=== PATIENT | female | born 1950 | race Caucasian/White ===

== ENCOUNTER 2018-03-01 15:25 | Observation (INO) | payer MEDICARE ==
[2018-03-01] MEDS ORDERED: NORMAL SALINE 1000 ML 1,000 ML IV ONE (16:12)
--- NOTE | 2018-03-01 16:14 | ER Document Report ---
ED Medical Screen (RME) - General Chief Complaint: General Weakness Stated Complaint: BLOOD SUGAR ISSUE/WEAKNESS Time Seen by Provider: 03/01/18 16:12 Notes: 68 years old female from [facility] travel long distance yesterday came home with lower back pain cramps and feeling tired. She also had an episode of TIA. She was sitting in the toilet for a long time did not know what to do about it. And confused. And non-coherent. TRAVEL OUTSIDE OF THE [place] IN LAST 30 DAYS: No - Related Data Allergies/Adverse Reactions: No Known Allergies Allergy (Verified 03/01/18 15:28) Past Medical History - Past Medical History Cardiac Medical History: Reports: Hx Hypertension - Immunizations Hx Diphtheria, Pertussis, Tetanus Vaccination: Yes Physical Exam - Vital signs Vitals: Temp Pulse Resp BP Pulse Ox 98.0 F 73 16 165/60 H 98 03/01/18 15:36 03/01/18 15:36 03/01/18 15:36 03/01/18 15:36 03/01/18 15:36 Course - Vital Signs Vital signs: Temp Pulse Resp BP Pulse Ox 98.0 F 73 16 165/60 H 98 03/01/18 15:36 03/01/18 15:36 03/01/18 15:36 03/01/18 15:36 03/01/18 15:36
[2018-03-01 17:00] LABS: APPEARANCE,URINE CLEAR; BILIRUBIN,URINE NEGATIVE (NEGATIVE); COLOR,URINE AMBER; GLUCOSE, URINE NEGATIVE (NEGATIVE); KETONES,URINE NEGATIVE (NEGATIVE); LEUKOCYTE ESTERASE,URINE NEGATIVE (NEGATIVE); NITRITE,URINE NEGATIVE (NEGATIVE); PROTEIN,URINE NEGATIVE (NEGATIVE); URINE SPECIFIC GRAVITY 1.011
[2018-03-01 17:04] LABS: ABSOLUTE EOSINOPHILS # (AUTO) 0.2 10^3/uL (0.0-0.6); ABSOLUTE LYMPHOCYTES (AUTO) 1.1 10^3/uL (0.5-4.7); ABSOLUTE MONOCYTES (AUTO) 0.3 10^3/uL (0.1-1.4); ABSOLUTE NEUT (AUTO) 2.5 10^3/uL (1.7-8.2); BASOPHILS % (AUTO) 0.2 % (0-2); EOSINOPHILS % (AUTO) 5.1 % (0-6); HEMATOCRIT 44.9 % (36.0-47.0); HEMOGLOBIN 15.4 g/dL (12.0-15.5); LYMPHOCYTES % (AUTO) 26.1 % (13-45); MEAN CORPUSCULAR HEMOGLOBIN 34.7 pg (27.0-33.4); MEAN CORPUSCULAR HGB CONC 34.3 g/dL (32.0-36.0); MEAN CORPUSCULAR VOLUME 101 fl (80-97); MONOCYTES % (AUTO) 8.4 % (3-13); RED BLOOD COUNT 4.43 10^6/uL (3.72-5.28); SEGMENTED NEUTROPHILS % (AUTO) 60.2 % (42-78); TOTAL CELLS COUNTED % (AUTO) 100 %; WHITE BLOOD COUNT 4.2 10^3/uL (4.0-10.5)
[2018-03-01 17:36] LABS: PLATELET COUNT 57 10^3/uL (150-450)
[2018-03-01 17:50] LABS: ALANINE AMINOTRANSFERASE 126 U/L (9-52); ALBUMIN 2.5 g/dL (3.5-5.0); ALKALINE PHOSPHATASE 294 U/L (38-126); ANION GAP 7 (5-19); ASPARTATE AMINO TRANSFERASE 182 U/L (14-36); BILIRUBIN,DIRECT 0.5 mg/dL (0.0-0.4); BLOOD UREA NITROGEN 13 mg/dL (7-20); CALCIUM 8.3 mg/dL (8.4-10.2); CARBON DIOXIDE 25 mmol/L (22-30); CHLORIDE 113 mmol/L (98-107); GLUCOSE 138 mg/dL (75-110); SODIUM 145.3 mmol/L (137-145); TOTAL PROTEIN 6.1 g/dL (6.3-8.2)
--- NOTE | 2018-03-01 17:52 | ER Document Report ---
ED Dizziness/Weakness - General Chief Complaint: General Weakness Stated Complaint: BLOOD SUGAR ISSUE/WEAKNESS Time Seen by Provider: 03/01/18 16:12 Notes: 68-year-old female patient emergency department chief complaint of weakness. Patient states that she is from out of town. Here visiting daughter. Began feeling weak. Thought her blood sugar was low. [place] like she is going to pass out. Having severe leg cramps. Has been dizzy and a little confused today as well. Feeling a little bit better after getting a liter of normal saline from triage. Patient states that she does not have any medical problems. Takes supplements for her medical conditions. States that she may have hepatitis but she has prayed for healing and has not followed up with her regular doctor. Denies any significant headache at this time. No significant bruising. TRAVEL OUTSIDE OF THE [place] IN LAST 30 DAYS: No - HPI Patient complains to provider of: Altered mental status, Near-syncope, Weakness Onset: Just prior to arrival Onset/Duration: Better Quality of pain: No pain - Related Data Allergies/Adverse Reactions: No Known Allergies Allergy (Verified 03/01/18 15:28) Past Medical History - General Information source: Patient - Social History Smoking Status: Never Smoker Frequency of alcohol use: None Drug Abuse: None Lives with: Spouse/Significant other Family History: Reviewed & Not Pertinent Patient has suicidal ideation: No Patient has homicidal ideation: No - Medical History Medical History: Other - Hepatitis C - Past Medical History Cardiac Medical History: Reports: Hx Hypertension Renal/ Medical History: Denies: Hx Peritoneal Dialysis - Immunizations Hx Diphtheria, Pertussis, Tetanus Vaccination: Yes Review of Systems - Review of Systems Constitutional: Malaise, Weakness. denies: Fever EENT: denies: Eye pain, Blurred vision, Double vision, Difficulty swallowing, Throat swelling Cardiovascular: denies: Chest pain, Palpitations, Heart racing Respiratory: denies: Cough, Hurts to breathe, Short of breath, Wheezing Gastrointestinal: denies: Abdominal pain, Diarrhea, Nausea, Vomiting Genitourinary: denies: Burning, Dysuria, Discharge Musculoskeletal: Muscle pain, Muscle stiffness. denies: Back pain, Joint swelling, Leg swelling Skin: denies: Dryness, Lesions, Lumps, Rash Hematologic/Lymphatic: denies: Anemia, Blood clots, Easy bleeding, Easy bruising Neurological/Psychological: Confusion, Sensory change, Weakness, Numbness. denies: Paralysis, Seizure Physical Exam - Vital signs Vitals: Temp Pulse Resp BP Pulse Ox 98.0 F 73 16 165/60 H 98 03/01/18 15:36 03/01/18 15:36 03/01/18 15:36 03/01/18 15:36 03/01/18 15:36 Interpretation: Normal - General General appearance: Appears well, Alert - HEENT Head: Normocephalic, Atraumatic Eyes: Normal Pupils: PERRL - Respiratory Respiratory status: No respiratory distress Chest status: Nontender Breath sounds: Normal Chest palpation: Normal - Cardiovascular Rhythm: Regular Heart sounds: Normal auscultation Murmur: No - Abdominal Inspection: Normal Distension: No distension Bowel sounds: Normal Tenderness: Nontender Organomegaly: No organomegaly - Back Back: Normal, Nontender - Extremities General upper extremity: Normal inspection, Nontender, Normal color, Normal ROM , Normal temperature General lower extremity: Normal inspection, Nontender, Edema - Trace edema bilateral lower extremities, Normal color, Normal ROM, Normal temperature, Normal weight bearing. No: Liza's sign - Neurological Neuro grossly intact: Yes Cognition: Normal Orientation: AAOx4 Lisa Coma Scale Eye Opening: Spontaneous Lisa Coma Scale Verbal: Oriented Lisa Coma Scale Motor: Obeys Commands [place] Coma Scale Total: 15 Speech: Normal Motor strength normal: LUE, RUE, LLE, RLE Sensory: Normal - Psychological Associated symptoms: Normal affect, Normal mood - Skin Skin Temperature: Warm Skin Moisture: Dry Skin Color: Normal Course - Re-evaluation Re-evalutation: 03/01/18 19:55 Patient has profoundly abnormal liver function studies, grossly elevated creatinine kinase. Thrombocytopenia. Head CT and chest x-ray ordered and unremarkable. At this time feel uncomfortable with these multitude of issues. Will consult with hospitalist for admission at this time. - Vital Signs Vital signs: Temp Pulse Resp BP Pulse Ox 98.0 F 73 16 109/75 99 03/01/18 15:36 03/01/18 15:36 03/01/18 15:36 03/01/18 18:46 03/01/18 18:46 - Laboratory Result Diagrams: 03/01/18 16:28 03/01/18 17:15 Laboratory results interpreted by me: 03/01/18 03/01/18 03/01/18 16:28 16:28 16:28 MCV 101 H MCH 34.7 H RDW 15.0 H Plt Count 57 L PT 16.8 H Sodium Chloride Glucose Calcium Direct Bilirubin AST ALT Alkaline Phosphatase Creatine Kinase CK-MB (CK-2) Total Protein Albumin Urine Urobilinogen 2.0 H 03/01/18 03/01/18 17:15 17:15 MCV MCH RDW Plt Count PT Sodium 145.3 H Chloride 113 H Glucose 138 H Calcium 8.3 L Direct Bilirubin 0.5 H AST 182 H ALT 126 H Alkaline Phosphatase 294 H Creatine Kinase 2241 H CK-MB (CK-2) 6.53 H Total Protein 6.1 L Albumin 2.5 L Urine Urobilinogen - EKG Interpretation by Ak EKG shows normal: Sinus rhythm, Kramer, Intervals, QRS Complexes, ST-T Waves Discharge - Discharge Clinical Impression: Hepatitis, Thrombocytopenia Rhabdomyolysis Qualifiers: Rhabdomyolysis type: non-traumatic Qualified Code(s): M62.82 - Rhabdomyolysis Condition: Good Disposition: ADMITTED INPATIENT Admitting Provider: Hospitalist Unit Admitted: Telemetry [facility]
[2018-03-01 18:01] LABS: CREATINE KINASE 2241 U/L (30-135)
[2018-03-01 19:30] LABS: FREE T3 3.6 pg/mL (2.77-5.27); FREE T4 (FREE THYROXINE) 1.19 ng/dL (0.78-2.19)
[2018-03-01 19:43] LABS: THYROID STIMULATING HORMONE 0.94 uIU/mL (0.47-4.68)
[2018-03-01 20:00] LABS: APPEARANCE,URINE CLEAR; BILIRUBIN,URINE NEGATIVE (NEGATIVE); COLOR,URINE STRAW; GLUCOSE, URINE NEGATIVE (NEGATIVE); KETONES,URINE NEGATIVE (NEGATIVE); LEUKOCYTE ESTERASE,URINE NEGATIVE (NEGATIVE); NITRITE,URINE NEGATIVE (NEGATIVE); PROTEIN,URINE NEGATIVE (NEGATIVE); URINE SPECIFIC GRAVITY 1.005; UROBILINOGEN,URINE NEGATIVE mg/dL (<2.0)
[2018-03-01 20:00] LABS: PROTHROMBIN TIME 16.8 SEC (11.4-15.4)
[2018-03-01 20:01] LABS: PARTIAL THROMBOPLASTIN TIME 33.4 SEC (23.5-35.8)
--- NOTE | 2018-03-01 20:18 | RADIOLOGY REPORT (SQ) ---
EXAM DESCRIPTION: CHEST 2 VIEWS COMPLETED DATE/TIME: 03/01/2018 7:29 pm REASON FOR STUDY: altered mental status COMPARISON: 09/01/2017 EXAM PARAMETERS: NUMBER OF VIEWS: two views TECHNIQUE: Digital Frontal and Lateral radiographic views of the chest acquired. RADIATION DOSE: NA LIMITATIONS: none FINDINGS: LUNGS AND PLEURA: No opacities, masses or pneumothorax. No pleural effusion. MEDIASTINUM AND HILAR STRUCTURES: No masses or contour abnormalities. HEART AND VASCULAR STRUCTURES: Heart normal size. No evidence for failure. BONES: No acute findings. HARDWARE: None in the chest. OTHER: No other significant finding. IMPRESSION: NO ACUTE RADIOGRAPHIC FINDING IN THE CHEST. TECHNICAL DOCUMENTATION: JOB ID: [id number] [employer]- All Rights Reserved Reading location - IP/workstation name: [email or web address]
--- NOTE | 2018-03-01 20:19 | RADIOLOGY REPORT (SQ) ---
EXAM DESCRIPTION: CT HEAD WITHOUT COMPLETED DATE/TIME: 03/01/2018 7:31 pm REASON FOR STUDY: Altered mental status, thrombocytopenia COMPARISON: None. TECHNIQUE: Axial images acquired through the brain without intravenous contrast. Images reviewed wi th bone, brain and subdural windows. Additional sagittal and coronal reconstructions were generated. Images stored on PACS. All CT scanners at this facility use dose modulation, iterative reconstruction, and/or weight based d osing when appropriate to reduce radiation dose to as low as reasonably achievable (ALARA). [facility]: Dose Right [facility]: CareDose [facility]: Dose Right [facility]: Teradose 4D [facility]: [employer] RADIATION DOSE: CT Rad equipment meets quality standard of care and radiation dose reduction techniq ues were employed. CTDIvol: 53.2 mGy. DLP: 964 mGy-cm. mGy. LIMITATIONS: None. FINDINGS: VENTRICLES: Normal size and contour. CEREBRUM: No masses. No hemorrhage. No midline shift. No evidence for acute infarction. Normal gra y/white matter differentiation. No areas of low density in the white matter. CEREBELLUM: No masses. No hemorrhage. No alteration of density. No evidence for acute infarction. EXTRAAXIAL SPACES: No fluid collections. No masses. ORBITS AND GLOBE: No intra- or extraconal masses. Normal contour of globe without masses. CALVARIUM: No fracture. PARANASAL SINUSES: No fluid or mucosal thickening. SOFT TISSUES: No mass or hematoma. OTHER: No other significant finding. IMPRESSION: NORMAL BRAIN CT WITHOUT CONTRAST. EVIDENCE OF ACUTE STROKE: NO. COMMENT: Quality ID # [id number]: Final reports with documentation of one or more dose reduction techniques (e.g., Automated exposure control, adjustment of the mA and/or kV according to patient size, use of iterative reconstruction technique) TECHNICAL DOCUMENTATION: JOB ID: [id number] [employer]- All Rights Reserved Reading location - IP/workstation name: [email or web address]
[2018-03-01] MEDS ORDERED: ONDANSETRON HCL INJ/PF 4 MG/2 ML SDV IV PRN (20:36)
[2018-03-01] MEDS ORDERED: IBUPROFEN 400 MG TABLET PO PRN (20:42)
--- NOTE | 2018-03-01 20:58 | PDOC H&P ---
History of Present Illness Admission Date/PCP: 03/01/18 20:28 PCP from out of town. Patient is currently visiting. Patient complains of: Weakness, lethargy, muscle pain History of Present Illness: NASEEM VIRK is a 68 year old female with history of possible hep C presents to the emergency room with complaint of bilateral lower extremity cramps as well as generalized weakness and lethargy and confusion since yesterday. Patient denies any complaint of fever or chills or chest pain or shortness of breath or abdominal pain or nausea vomiting. Patient has not been drinking or eating well as per family. Patient denies any urinary symptoms are focal weakness or numbness. Patient denies headache. On arrival to the emergency room her vitals were stable. CT head was unremarkable. Her laboratory workup shows thrombocytopenia and low albumin. Her LFTs elevated. Her CKs more than 2000. Troponin is negative BNP is normal.. Chest x-ray unremarkable. Urine analysis is negative. Patient was given IV fluid and was referred to hospitalist service for admission. Patient is currently alert awake oriented 3. Past Medical History Cardiac Medical History: Reports: Hypertension EENT Medical History: Reports: None Endocrine Medical History: Reports: None Malignancy Medical History: Reports: None GI Medical History: Reports: Hepatitis - Possible hep C Musculoskeltal Medical History: Reports: None Skin Medical History: Reports: None Psychiatric Medical History: Reports: None Traumatic Medical History: Reports: None Hematology: Reports: None Infectious Medical History: Reports: None Past Surgical History Past Surgical History: Reports: None Social History Information Source: Patient Lives with: Family, Spouse/Significant other Smoking Status: Never Smoker Frequency of Alcohol Use: None Hx Recreational Drug Use: No Family History Family History: Reviewed & Not Pertinent Parental Family History Reviewed: No Children Family History Reviewed: No Sibling(s) Family History Reviewed.: No Medication/Allergy Allergies/Adverse Reactions: No Known Allergies Allergy (Verified 03/01/18 15:28) Review of Systems Constitutional: PRESENT: fatigue, weakness Eyes: PRESENT: as per HPI Ears: PRESENT: as per HPI Nose, Mouth, and Throat: PRESENT: as per HPI Breasts: PRESENT: as per HPI Cardiovascular: PRESENT: as per HPI Respiratory: PRESENT: as per HPI Gastrointestinal: PRESENT: as per HPI Musculoskeletal: PRESENT: muscle weakness Integumentary: PRESENT: as per HPI Neurological: PRESENT: confusion Psychiatric: PRESENT: as per HPI Endocrine: PRESENT: as per HPI Hematologic/Lymphatic: PRESENT: as per HPI Allergic/Immunologic: PRESENT: as per HPI Physical Exam Vital Signs: Temp Pulse Resp BP Pulse Ox 98.0 F 73 16 109/75 99 03/01/18 15:36 03/01/18 15:36 03/01/18 15:36 03/01/18 18:46 03/01/18 18:46 General appearance: PRESENT: no acute distress, cooperative, well-developed, well-nourished Head exam: PRESENT: atraumatic Eye exam: PRESENT: EOMI, PERRLA. ABSENT: nystagmus Ear exam: PRESENT: normal external ear exam. ABSENT: bleeding, drainage Mouth exam: PRESENT: moist, neck supple Throat exam: ABSENT: tonsillar exudate, tonsillogmegaly Neck exam: ABSENT: carotid bruit, JVD, lymphadenopathy, tenderness, thyromegaly Respiratory exam: PRESENT: clear to auscultation constantine. ABSENT: chest wall tenderness, rales, tachypnea, wheezes Cardiovascular exam: PRESENT: RRR, +S1, +S2 Pulses: PRESENT: normal carotid pulses, normal dorsalis pedis pul Vascular exam: PRESENT: normal capillary refill GI/Abdominal exam: PRESENT: normal bowel sounds, soft. ABSENT: organolmegaly, tenderness Rectal exam: PRESENT: deferred Gentrourinary exam: ABSENT: ecchymosis, erythema, lacerations Extremities exam: PRESENT: full ROM. ABSENT: calf tenderness, joint swelling, tenderness Musculoskeletal exam: PRESENT: ambulatory Neurological exam: PRESENT: alert, altered, awake, oriented to person, oriented to time, oriented to situation, CN II-XII grossly intact, motor sensory deficit Psychiatric exam: ABSENT: homicidal ideation, suicidal ideation Skin exam: ABSENT: abrasion, jaundice, rash Results EKG Comments: Normal sinus rhythm with nonspecific ST changes. Personally reviewed by me. Impressions: Chest X-Ray 03/01/18 18:35 IMPRESSION: NO ACUTE RADIOGRAPHIC FINDING IN THE CHEST. Head CT 03/01/18 18:35 IMPRESSION: NORMAL BRAIN CT WITHOUT CONTRAST. EVIDENCE OF ACUTE STROKE: NO. Status: Image reviewed by me Assessment & Plan - Diagnosis (1) Altered mental status, unspecified Qualifiers: Altered mental status type: somnolence Qualified Code(s): R40.0 - Somnolence Is this a current diagnosis for this admission?: Yes Plan: Patient with transient confusion and drowsy. Likely dehydration or secondary to liver disease. Will check ammonia level. CT head is negative. No focal deficit on exam. We will continue frequent neuro check. Patient's mental status is now at baseline. (2) Elevated LFTs Is this a current diagnosis for this admission?: Yes Plan: Patient gives history of possible hep C. Will check hepatitis panel. Check ammonia level. Consider right upper quadrant if needed. Will recheck liver function tests in a.m.. (3) Rhabdomyolysis Qualifiers: Rhabdomyolysis type: non-traumatic Qualified Code(s): M62.82 - Rhabdomyolysis Is this a current diagnosis for this admission?: Yes Plan: Unknown etiology. Could be dehydration. Will continue IV fluid resuscitation. Renal function is normal. Recheck CK in a.m.. - Time Time Spent: 30 to 50 Minutes Medications reviewed and adjusted accordingly: No Within: within 24 hours - Inpatient Certification Based on my medical assessment, after consideration of the patient's comorbidities, presenting symptoms, or acuity I expect that the services needed warrant INPATIENT care.: No I certify that my determination is in accordance with my understanding of Medicare's requirements for reasonable and necessary INPATIENT services [42 CFR 412.3e].: No - Plan Summary Plan Summary: Observation level 2 admission.
[2018-03-01] MEDS: DEXTROSE 5%-NORMAL SALINE 1,000 ML IV PRN (21:22)
--- NOTE | 2018-03-01 21:33 | EKG REPORT ---
SEVERITY:- BORDERLINE ECG - SINUS RHYTHM BORDERLINE LEFT AXIS DEVIATION BORDERLINE PROLONGED QT INTERVAL : Confirmed by: Kayla Isbell 01-Mar-2018 21:33:00
[2018-03-02] MEDS: DEXTROSE 5%-NORMAL SALINE 1,000 ML IV PRN ×2 (05:21→21:15)
[2018-03-02 06:43] LABS: HEMATOCRIT 36.6 % (36.0-47.0); MEAN CORPUSCULAR HEMOGLOBIN 34.7 pg (27.0-33.4); MEAN CORPUSCULAR HGB CONC 34.1 g/dL (32.0-36.0); MEAN CORPUSCULAR VOLUME 102 fl (80-97); RED CELL DISTRIBUTION WIDTH 15.1 % (11.5-14.0); WHITE BLOOD COUNT 3.1 10^3/uL (4.0-10.5)
[2018-03-02 06:54] LABS: ALANINE AMINOTRANSFERASE 114 U/L (9-52); ALBUMIN 2.2 g/dL (3.5-5.0); ALKALINE PHOSPHATASE 204 U/L (38-126); ANION GAP 5 (5-19); ASPARTATE AMINO TRANSFERASE 154 U/L (14-36); BILIRUBIN,DIRECT 0.5 mg/dL (0.0-0.4); BILIRUBIN,TOTAL 1.1 mg/dL (0.2-1.3); BLOOD UREA NITROGEN 11 mg/dL (7-20); CALCIUM 8.2 mg/dL (8.4-10.2); CARBON DIOXIDE 26 mmol/L (22-30); CHLORIDE 118 mmol/L (98-107); CREATINE KINASE 993 U/L (30-135); GLUCOSE 117 mg/dL (75-110); POTASSIUM 3.6 mmol/L (3.6-5.0); SODIUM 148.6 mmol/L (137-145); TOTAL PROTEIN 5.5 g/dL (6.3-8.2)
[2018-03-02 07:32] LABS: HEMOGLOBIN 12.5 g/dL (12.0-15.5)
[2018-03-02 07:35] LABS: PLATELET COUNT 38 10^3/uL (150-450)
--- NOTE | 2018-03-02 14:03 | RADIOLOGY REPORT (SQ) ---
EXAM DESCRIPTION: CT ABD/PELVIS WITH IV ONLY COMPLETED DATE/TIME: 03/02/2018 1:19 pm REASON FOR STUDY: elevated LFT R10.10 UPPER ABDOMINAL PAIN, UNSPECIFIED D69.6 THROMBOCYTOPENIA, UN SPECIFIED COMPARISON: None. TECHNIQUE: CT scan of the abdomen and pelvis performed using helical scanning technique with dynamic intravenous contrast injection. No oral contrast. Images reviewed with lung, soft tissue, and bone windows. Reconstructed coronal and sagittal MPR images reviewed. Delayed images for evaluation of the urinary system also acquired. All images stored on PACS. All CT scanners at this facility use dose modulation, iterative reconstruction, and/or weight based d osing when appropriate to reduce radiation dose to as low as reasonably achievable (ALARA). [facility]: Dose Right [facility]: CareDose [facility]: Dose Right [facility]: Teradose 4D [facility]: [employer] CONTRAST TYPE AND DOSE: contrast/concentration: Isovue 370.00 mg/ml; Total Contrast Delivered: 81.0 ml; Total Saline Delivered: 68.0 ml RENAL FUNCTION: Creatinine 0.59 RADIATION DOSE: CT Rad equipment meets quality standard of care and radiation dose reduction techniq ues were employed. CTDIvol: 9.0 - 10.5 mGy. DLP: 903 mGy-cm.. LIMITATIONS: None. FINDINGS: LOWER CHEST: No significant findings. No nodules or infiltrates. LIVER: Normal size. No masses. No dilated ducts. SPLEEN: The spleen is enlarged. No focal splenic abnormalities are identified. PANCREAS: No masses. No significant calcifications. No adjacent inflammation or peripancreatic fluid collections. Pancreatic duct not dilated. GALLBLADDER: Couple small calcified gallstones are identified. No inflammatory changes to suggest cho lecystitis. ADRENAL GLANDS: No significant masses or asymmetry. RIGHT KIDNEY AND URETER: No solid masses. No significant calcifications. No hydronephrosis or hyd roureter. LEFT KIDNEY AND URETER: No solid masses. No significant calcifications. No hydronephrosis or hydr oureter. AORTA AND VESSELS: No aneurysm. No dissection. Vascular calcifications are identified in the abdomin al aorta and iliac vessels. Renal arteries, SMA, celiac without stenosis. RETROPERITONEUM: No retroperitoneal adenopathy, hemorrhage or masses. BOWEL AND PERITONEAL CAVITY: No masses or inflammatory changes. No free fluid or peritoneal masses. APPENDIX: Normal. PELVIS: No mass. No free fluid. Normal bladder. ABDOMINAL WALL: No masses. No hernias. BONES: No significant or acute findings. OTHER: Multiple collateral venous structures are identified in the left upper quadrant consistent wit h portal hypertension. IMPRESSION: The spleen is enlarged. Multiple collateral venous channels are identified in the left upper quadrant in the appearance is most consistent with portal hypertension. Couple small gallstone s are identified. No dilated intrahepatic bile ducts are identified. Other findings as noted above TECHNICAL DOCUMENTATION: JOB ID: [id number] Quality ID # [id number]: Final reports with documentation of one or more dose reduction techniques (e.g., Au tomated exposure control, adjustment of the mA and/or kV according to patient size, use of iterative reconstruction technique) 2010 [employer]- All Rights Reserved Reading location - IP/workstation name: [email or web address]
--- NOTE | 2018-03-02 17:56 | PDOC PROGRESS REPORT ---
Subjective Progress Note for:: 03/02/18 Subjective:: The patient is a 68-year-old female who [place] [facility]. She presented to the emergency room with altered mental status. In the emergency room she was found to have markedly elevated liver function tests and thrombocytopenia. Her states that she has a history of hepatitis C but the patient adamantly denied. The patient does not like to take medications. 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 The patient was admitted to the hospital and hydrated. This morning her acute encephalopathy has totally resolved and she is back to her baseline mentation. Her thrombocytopenia is worse. She had a CT scan of the abdomen and pelvis which reveals evidence of probable portal hypertension, diffuse fatty liver and splenomegaly. When I went to see the patient today she states that she is quite anxious to leave the hospital. She states that she is going to establish care with a primary care physician when she gets up, which will be in 2 weeks. After a long discussion we have agreed to do no further workup here in the hospital. We are going to watch her overnight and if her labs are stable tomorrow she will be discharged home. I am going to try to get her a new patient appointment as an outpatient in her home town. She denies fever chills. She has had no chest pain, shortness of breath or cough. No nausea vomiting or diarrhea. No urinary complaints. Reason For Visit: AMS,ELEVATED CK Physical Exam Vital Signs: Temp Pulse Resp BP Pulse Ox 98.4 F 66 18 142/62 H 98 03/02/18 15:37 03/02/18 15:37 03/02/18 15:37 03/02/18 15:37 03/02/18 15:37 Intake & Output 03/01/18 03/02/18 03/03/18 06:59 06:59 06:59 Intake Total 1248 1857 Balance 1248 1857 Weight 75.6 kg General appearance: PRESENT: no acute distress, well-developed, other - Somewhat ill-appearing Head exam: PRESENT: atraumatic, normocephalic Eye exam: PRESENT: conjunctiva pink, EOMI, PERRLA. ABSENT: scleral icterus Mouth exam: PRESENT: moist, tongue midline Neck exam: ABSENT: carotid bruit, JVD, lymphadenopathy, thyromegaly Respiratory exam: PRESENT: clear to auscultation constantine. ABSENT: rales, rhonchi, wheezes Cardiovascular exam: PRESENT: RRR. ABSENT: diastolic murmur, rubs, systolic murmur GI/Abdominal exam: PRESENT: normal bowel sounds, soft. ABSENT: distended, guarding, mass, organolmegaly, rebound, tenderness Rectal exam: PRESENT: deferred Extremities exam: PRESENT: full ROM. ABSENT: calf tenderness, clubbing, pedal edema Neurological exam: PRESENT: alert, awake, oriented to person, oriented to place , oriented to time, oriented to situation, CN II-XII grossly intact. ABSENT: motor sensory deficit Psychiatric exam: PRESENT: appropriate affect, normal mood. ABSENT: homicidal ideation, suicidal ideation Skin exam: PRESENT: dry, intact, warm. ABSENT: cyanosis, rash Results Laboratory Results: 03/02/18 05:45 03/02/18 05:45 03/02/18 03/02/18 03/02/18 05:45 05:45 05:45 WBC 3.1 L RBC 3.60 L Hgb 12.5 D Hct 36.6 MCV 102 H MCH 34.7 H MCHC 34.1 RDW 15.1 H Plt Count 38 L Sodium 148.6 H Potassium 3.6 Chloride 118 H Carbon Dioxide 26 Anion Gap 5 BUN 11 Creatinine 0.59 Est GFR ( Amer) > 60 Est GFR (Non-Af Amer) > 60 Glucose 117 H Calcium 8.2 L Phosphorus 3.2 Total Bilirubin 1.1 AST 154 H ALT 114 H Alkaline Phosphatase 204 H Total Protein 5.5 L Albumin 2.2 L 03/02/18 05:45 Creatine Kinase 993 H Impressions: Chest X-Ray 03/01/18 18:35 IMPRESSION: NO ACUTE RADIOGRAPHIC FINDING IN THE CHEST. Head CT 03/01/18 18:35 IMPRESSION: NORMAL BRAIN CT WITHOUT CONTRAST. EVIDENCE OF ACUTE STROKE: NO. Abdomen/Pelvis CT 03/02/18 08:55 IMPRESSION: The spleen is enlarged. Multiple collateral venous channels are identified in the left upper quadrant in the appearance is most consistent with portal hypertension. Couple small gallstones are identified. No dilated intrahepatic bile ducts are identified. Other findings as noted above Assessment & Plan - Diagnosis (1) Acute encephalopathy Is this a current diagnosis for this admission?: Yes Plan: The patient had acute metabolic encephalopathy at the time of admission that was likely due to underlying dehydration. Her encephalopathy is totally resolved and she is back to her baseline. Her ammonia level was normal. (2) Elevated liver function tests Is this a current diagnosis for this admission?: Yes Plan: She reportedly has a history of hepatitis C that was untreated. Adamantly denies this. Hepatitis panel is pending. She does have evidence of portal hypertension and diffuse fatty infiltration of the liver noted on CT scan. She needs a good GI doctor and further workup. She has worsening thrombocytopenia which could be due to her underlying liver disease, however she does have splenomegaly and there could be another process going on as well. (3) Thrombocytopenia Is this a current diagnosis for this admission?: Yes Plan: Her platelet level is down to 35,000. We are going to check a CBC in the morning. This certainly needs further workup in light of her splenomegaly and signs of liver disease. If her platelet level is stable tomorrow she can likely be discharged home. We are going to obtain a new patient appointment at discharge. (4) Splenomegaly Is this a current diagnosis for this admission?: Yes (5) Rhabdomyolysis Is this a current diagnosis for this admission?: Yes Plan: Resolving with IV fluids. (6) Hypernatremia Is this a current diagnosis for this admission?: Yes Plan: She will have a level checked in the morning. (7) Hyperglycemia Is this a current diagnosis for this admission?: Yes Plan: She will have hemoglobin A1c drawn in the morning. (8) Full code status Is this a current diagnosis for this admission?: Yes - Time Time Spent with patient: 35 or more minutes - Inpatient Certification Medical Necessity: Other - The patient will remain in observation in the hospital overnight. We are going to repeat labs tomorrow morning. If they are stable she can be discharged and follow-up as an outpatient. The patient does not want to be worked up here in the hospital as she does not live in the area and will be traveling home in the next 2 weeks.
[2018-03-02 19:37] LABS: ANION GAP 6 (5-19); BLOOD UREA NITROGEN 12 mg/dL (7-20); CALCIUM 8.8 mg/dL (8.4-10.2); CARBON DIOXIDE 28 mmol/L (22-30); CHLORIDE 110 mmol/L (98-107); GLUCOSE 133 mg/dL (75-110); POTASSIUM 4.2 mmol/L (3.6-5.0)
[2018-03-02] MEDS ORDERED: CEFTRIAXONE SODIUM 1,000 MG in DEXTROSE 5%-WATER 50 ML IV SCH (20:00)
[2018-03-03 05:41] LABS: HEPATITIS A AB IGM Negative (Negative); HEPATITIS B CORE AB IGM Negative (Negative); HEPATITS B SURFACE ANTIGEN Negative (Negative)
[2018-03-03] MEDS: DEXTROSE 5%-NORMAL SALINE 1,000 ML IV PRN (05:45)
[2018-03-03 06:47] LABS: BLOOD UREA NITROGEN 15 mg/dL (7-20); GLUCOSE 107 mg/dL (75-110); POTASSIUM 3.8 mmol/L (3.6-5.0)
[2018-03-03 06:48] LABS: ABSOLUTE EOSINOPHILS # (AUTO) 0.3 10^3/uL (0.0-0.6); ABSOLUTE LYMPHOCYTES (AUTO) 1.3 10^3/uL (0.5-4.7); ABSOLUTE MONOCYTES (AUTO) 0.3 10^3/uL (0.1-1.4); ABSOLUTE NEUT (AUTO) 1.3 10^3/uL (1.7-8.2); BASOPHILS % (AUTO) 0.5 % (0-2); EOSINOPHILS % (AUTO) 8.1 % (0-6); HEMATOCRIT 34.8 % (36.0-47.0); HEMOGLOBIN 11.9 g/dL (12.0-15.5); LYMPHOCYTES % (AUTO) 42.1 % (13-45); MEAN CORPUSCULAR HEMOGLOBIN 35.1 pg (27.0-33.4); MEAN CORPUSCULAR HGB CONC 34.3 g/dL (32.0-36.0); MEAN CORPUSCULAR VOLUME 102 fl (80-97); MONOCYTES % (AUTO) 8.8 % (3-13); SEGMENTED NEUTROPHILS % (AUTO) 40.5 % (42-78); TOTAL CELLS COUNTED % (AUTO) 100 %; WHITE BLOOD COUNT 3.2 10^3/uL (4.0-10.5)
[2018-03-03 06:52] LABS: ANION GAP 5 (5-19); CARBON DIOXIDE 26 mmol/L (22-30); CHLORIDE 114 mmol/L (98-107); SODIUM 144.5 mmol/L (137-145)
[2018-03-03 07:52] LABS: PLATELET COUNT 37 10^3/uL (150-450)
[2018-03-03 08:20] LABS: HEPATITIS C VIRUS ANTIBODY >11.0 s/co ratio (0.0-0.9)
[2018-03-03 09:01] LABS: ALANINE AMINOTRANSFERASE 105 U/L (9-52); ALBUMIN 1.9 g/dL (3.5-5.0); ALKALINE PHOSPHATASE 138 U/L (38-126); ASPARTATE AMINO TRANSFERASE 136 U/L (14-36); BILIRUBIN,DIRECT 0.5 mg/dL (0.0-0.4); BILIRUBIN,TOTAL 1.2 mg/dL (0.2-1.3); TOTAL PROTEIN 5.1 g/dL (6.3-8.2)
--- NOTE | 2018-03-03 11:54 | PDOC DISCHARGE SUMMARY ---
General - Admit/Disc Date/PCP Admission Date/Primary Care Provider: 03/01/18 20:28 mechanical supervisor: None I have made arrangements for the patient to reestablish care at [facility]. She has followed with Jaclyn in the past and I have made her a new patient appointment Leslie on March 16 at 11 AM. Discharge Date: 03/03/18 - Discharge Diagnosis (1) Acute encephalopathy Is this a current diagnosis for this admission?: Yes Summary: The patient had acute metabolic encephalopathy at the time of admission that was likely due to underlying dehydration. Her encephalopathy has totally resolved and she is back to her baseline. Her ammonia level was normal. (2) Elevated liver function tests Is this a current diagnosis for this admission?: Yes Summary: She reportedly has a history of hepatitis C that was untreated. At the time of admission the patient adamantly denied this. She is very vague about this diagnosis and discussions going forward. A hepatitis panel is pending. She does have evidence of portal hypertension and diffuse fatty infiltration of the liver noted on CT scan. She needs a good GI doctor and further workup. That can be performed as an outpatient she has rather significant thrombocytopenia which could be due to her underlying liver disease, however she does have splenomegaly and there could be another process going on as well. The patient does not want any workup performed during this hospitalization as she wants to get back home and reestablish care with her previous provider. (3) Thrombocytopenia Is this a current diagnosis for this admission?: Yes Summary: On the day of discharge the patient's platelet level is 38,000. Again noted is her abnormal liver function test and splenomegaly on her CT scan. She has evidence of portal hypertension as well. Further workup can be obtained as an outpatient. We kept her in the hospital an additional day to document stability of her platelet level. She has been advised that she could easily bleed and to report back to the hospital if she develops any GI bleeding. (4) Splenomegaly Is this a current diagnosis for this admission?: Yes Summary: Further workup will be obtained as an outpatient. (5) Rhabdomyolysis Is this a current diagnosis for this admission?: Yes Summary: She had very mild rhabdomyolysis at the time of admission. This has resolved with IV fluids. (6) Hypernatremia Is this a current diagnosis for this admission?: Yes Summary: Likely due to dehydration. Resolved (7) Hyperglycemia Is this a current diagnosis for this admission?: Yes Summary: Likely reactive. Her hemoglobin A1c was 4.9. (8) Full code status Is this a current diagnosis for this admission?: Yes - Additional Information Resuscitation Status: Full Code Home Medications: Calcium Carbonate [Os-Venu 500 mg Tablet (Oyster-Shell)] 500 mg PO DAILY Multivitamin [Tab-A-Mitesh (Multiple Vitamin) Tablet] 1 tab PO DAILY 03/01/18 Zinc Gluconate [Zinc] 50 mg PO DAILY 03/01/18 History of Present Illness History of Present Illness: NASEEM VIRK is a 68 year old female who presented to the emergency room with altered mental status. Hospital Course Hospital Course: The patient is a pleasant 68-year-old female who is traveling to this area from the [place] [facility]. She presented to the emergency room with altered mental status. Laboratory studies revealed markedly elevated liver function test as well as thrombocytopenia. She was somewhat confused at the time of admission. Her states that she has a history of hepatitis C that is never been treated but the patient adamantly denied this. According to the patient's she does not like to take medications and quit seeing her primary care provider several years ago. 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 At the time of admission it was felt that she was dehydrated. She was admitted to the hospital and started on IV fluids. She was empirically started on IV Rocephin for a potential urinary tract infection. This was later stopped as urinary tract infection was ruled out. The day after admission her encephalopathy was totally resolved however her platelet levels had worsened. She had a CT scan of the abdomen and pelvis which revealed diffuse fatty infiltration of the liver, evidence of portal hypertension as well as splenomegaly. After a long discussion with the patient's family she was kept in the hospital 1 additional night to document stability of her labs. The patient and her have requested no workup for her issues during this hospitalization as they are just visiting this area. They would like to get her back home and reestablish care with her previous provider. They want to undergo workup in their home town. This morning when I saw the patient she has had no overnight events. She continues to be at her baseline mental status. It is felt that she can safely be discharged home. I personally called [facility] and have made her an appointment to follow-up with her previous provider Jaclyn Nelsno PA-C. I am going to have the nursing staff fax what records we have. There is still a hepatitis panel that is pending as of the time of this dictation and I do not believe it will be back before she leaves the hospital. She has been advised to watch for signs of bleeding. Specifically if she develops any hematemesis or bloody or black stools she is to seek medical help quite quickly. I have explained this to the patient's and her family and all of their questions have been answered. At this point the patient appears to be stable. She has likely had these lab abnormalities for quite some time. She will be discharged home today in stable condition. Physical Exam Vital Signs: Temp Pulse Resp BP Pulse Ox 98.2 F 71 14 142/59 H 97 03/02/18 23:32 03/02/18 23:32 03/02/18 23:32 03/02/18 23:32 03/02/18 23:32 Intake & Output 03/02/18 03/03/18 03/04/18 06:59 06:59 06:59 Intake Total 1248 3345 Balance 1248 3345 Weight 75.6 kg 77.3 kg General appearance: PRESENT: no acute distress, well-developed, well-nourished Head exam: PRESENT: atraumatic, normocephalic Ear exam: PRESENT: normal external ear exam Neck exam: ABSENT: carotid bruit, JVD, lymphadenopathy, thyromegaly Respiratory exam: PRESENT: clear to auscultation constantine. ABSENT: rales, rhonchi, wheezes Cardiovascular exam: PRESENT: RRR. ABSENT: diastolic murmur, rubs, systolic murmur Pulses: PRESENT: normal dorsalis pedis pul GI/Abdominal exam: PRESENT: normal bowel sounds, soft. ABSENT: distended, guarding, mass, organolmegaly, rebound, tenderness Rectal exam: PRESENT: deferred Extremities exam: PRESENT: full ROM. ABSENT: calf tenderness, clubbing, pedal edema Neurological exam: PRESENT: alert, awake, oriented to person, oriented to place , oriented to time, oriented to situation, CN II-XII grossly intact. ABSENT: motor sensory deficit Psychiatric exam: PRESENT: appropriate affect, normal mood. ABSENT: homicidal ideation, suicidal ideation Skin exam: PRESENT: dry, intact, warm. ABSENT: cyanosis, rash Results Laboratory Results: 03/03/18 05:29 03/03/18 05:29 03/02/18 03/03/18 03/03/18 19:00 05:29 05:29 WBC 3.2 L RBC 3.40 L Hgb 11.9 L Hct 34.8 L MCV 102 H MCH 35.1 H MCHC 34.3 RDW 15.0 H Plt Count 37 L Seg Neutrophils % 40.5 L Lymphocytes % 42.1 Monocytes % 8.8 Eosinophils % 8.1 H Basophils % 0.5 Absolute Neutrophils 1.3 L Absolute Lymphocytes 1.3 Absolute Monocytes 0.3 Absolute Eosinophils 0.3 Absolute Basophils 0.0 Sodium 144.0 144.5 Potassium 4.2 3.8 Chloride 110 H 114 H Carbon Dioxide 28 26 Anion Gap 6 5 BUN 12 15 Creatinine 0.93 0.65 Est GFR ( Amer) > 60 > 60 Est GFR (Non-Af Amer) > 60 > 60 Glucose 133 H 107 Calcium 8.8 8.0 L Magnesium 1.9 Total Bilirubin AST ALT Alkaline Phosphatase Total Protein Albumin Vitamin B12 998.0 H Folate 14.70 03/03/18 05:29 WBC RBC Hgb Hct MCV MCH MCHC RDW Plt Count Seg Neutrophils % Lymphocytes % Monocytes % Eosinophils % Basophils % Absolute Neutrophils Absolute Lymphocytes Absolute Monocytes Absolute Eosinophils Absolute Basophils Sodium Potassium Chloride Carbon Dioxide Anion Gap BUN Creatinine Est GFR ( Amer) Est GFR (Non-Af Amer) Glucose Calcium Magnesium Total Bilirubin 1.2 AST 136 H ALT 105 H Alkaline Phosphatase 138 H Total Protein 5.1 L Albumin 1.9 L Vitamin B12 Folate 03/02/18 05:45 Creatine Kinase 993 H Impressions: Chest X-Ray 03/01/18 18:35 IMPRESSION: NO ACUTE RADIOGRAPHIC FINDING IN THE CHEST. Head CT 03/01/18 18:35 IMPRESSION: NORMAL BRAIN CT WITHOUT CONTRAST. EVIDENCE OF ACUTE STROKE: NO. Abdomen/Pelvis CT 03/02/18 08:55 IMPRESSION: The spleen is enlarged. Multiple collateral venous channels are identified in the left upper quadrant in the appearance is most consistent with portal hypertension. Couple small gallstones are identified. No dilated intrahepatic bile ducts are identified. Other findings as noted above Qualifiers - * PATIENT BEING DISCHARGED WITH ANY OF THE FOLLOWING DIAGNOSIS: No Plan Discharge Plan: She has a new patient appointment with her previous provider on March 16 at 11 AM. I am asking the nursing staff here to fax records. Time Spent: Greater than 30 Minutes
[2018-03-03 12:29] VITALS: BP 151/63
== END 2018-03-03 13:05 | disposition home or self-care (01) ==
LOC: ER 15:25 → EH 20:28 → INTOOBSV 20:28 → 4N 22:48
PROVIDERS: ADMIT Internal Medicine; ATTEND Internal Medicine
DX: G93.41 Metabolic encephalopathy (principal); R79.89 Other specified abnormal findings of blood chemistry; K76.6 Portal hypertension; K76.0 Fatty (change of) liver, not elsewhere classified; D69.6 Thrombocytopenia, unspecified; R16.1 Splenomegaly, not elsewhere classified; M62.82 Rhabdomyolysis; E87.0 Hyperosmolality and hypernatremia; R73.9 Hyperglycemia, unspecified; M54.5 Low back pain; Z86.19 Personal history of other infectious and parasitic diseases
CPT/HCPCS: 93005; 99285; 96360; 36415 ×3; 87086; 84439; 82553; 82962; 82140; 82607; 82550 ×2; 82746; 83690; 83735; 84100; 84443; 85025 ×2; 85027; 85610; 85730; 80076; 80048 ×2; 80053 ×2; 81001; 84484; 84481; 83036; 80074; 83880; 71046; 70450; 74177; 93010; G0378 ×4; A9270; J0696; J3490; J7030

== ENCOUNTER 2018-11-15 23:34 | Emergency (ER) | payer MEDICARE ==
[2018-11-16] MEDS ORDERED: NORMAL SALINE 1000 ML 1,000 ML IV ONE ×2 (01:50→04:26)
[2018-11-16] MEDS ORDERED: ONDANSETRON HCL INJ/PF 4 MG/2 ML SDV IV ONE (01:53)
[2018-11-16] MEDS ORDERED: IPRATROPIUM/ALBUTEROL 0.5-2.5 MG/3 ML AMPUL NEB ONE ×2 (01:56→04:26)
--- NOTE | 2018-11-16 01:56 | ER Document Report ---
ED Medical Screen (RME) - General Chief Complaint: Breathing Difficulty Stated Complaint: TROUBLE BREATHING,FEVER,COUGH Time Seen by Provider: 11/16/18 01:46 Mode of Arrival: Wheelchair Information source: Patient, Relative - Daughter Notes: Patient is a 68-year-old female who presents to the emergency department with multiple complaints. Patient reports fever, cough, nausea, diarrhea, right flank pain and dark urine. Patient reports all symptoms started several days ago other than the cough which started several months ago. Patient's daughter reports that the patient's urine is very dark in color. Patient denies any dysuria. Patient does have a history of hepatitis C, states that she has been taking medications for this and that at this point it is undetectable. Patient denies history of CHF or chronic kidney disease. Exam: Patient answering all questions appropriately, appears mildly ill. Coarse lung sounds bilaterally. I have greeted and performed a rapid initial assessment of this patient. A comprehensive ED assessment and evaluation of the patient, analysis of test results and completion of the medical decision making process will be conducted by additional ED providers. Dictation of this chart was performed using voice recognition software; therefore, there may be some unintended grammatical errors. TRAVEL OUTSIDE OF THE [place] IN LAST 30 DAYS: No - Related Data Allergies/Adverse Reactions: No Known Allergies Allergy (Verified 03/01/18 15:28) Past Medical History - Past Medical History Cardiac Medical History: Reports: Hx Hypertension Renal/ Medical History: Denies: Hx Peritoneal Dialysis GI Medical History: Reports: Hx Hepatitis - Possible hep C Infectious Medical History: Reports: Hx Hepatitis - Possible hep C - Immunizations Hx Diphtheria, Pertussis, Tetanus Vaccination: Yes History of Influenza Vaccine for 05/2017 - 10/2017 Season: Unknown Physical Exam - Vital signs Vitals: Temp Pulse Resp BP Pulse Ox 99.8 F 94 18 122/36 L 96 11/15/18 23:41 11/15/18 23:41 11/15/18 23:41 11/15/18 23:41 11/15/18 23:41 Course - Vital Signs Vital signs: Temp Pulse Resp BP Pulse Ox 99.8 F 94 18 122/36 L 96 11/15/18 23:41 11/15/18 23:41 11/15/18 23:41 11/15/18 23:41 11/15/18 23:41
[2018-11-16 02:57] LABS: HEMATOCRIT 41.4 % (36.0-47.0); HEMOGLOBIN 14.2 g/dL (12.0-15.5); MEAN CORPUSCULAR HEMOGLOBIN 34.5 pg (27.0-33.4); MEAN CORPUSCULAR HGB CONC 34.3 g/dL (32.0-36.0); MEAN CORPUSCULAR VOLUME 100 fl (80-97); RED BLOOD COUNT 4.12 10^6/uL (3.72-5.28); RED CELL DISTRIBUTION WIDTH 14.9 % (11.5-14.0); WHITE BLOOD COUNT 9.8 10^3/uL (4.0-10.5)
[2018-11-16 03:02] LABS: APPEARANCE,URINE SLIGHTLY-CLOUDY; BILIRUBIN,URINE SMALL (NEGATIVE); COLOR,URINE AMBER; GLUCOSE, URINE NEGATIVE (NEGATIVE); KETONES,URINE NEGATIVE (NEGATIVE); LEUKOCYTE ESTERASE,URINE NEGATIVE (NEGATIVE); NITRITE,URINE NEGATIVE (NEGATIVE); PROTEIN,URINE 30 mg/dL (NEGATIVE); URINE SPECIFIC GRAVITY 1.027
[2018-11-16 03:06] LABS: ALANINE AMINOTRANSFERASE 47 U/L (9-52); ALBUMIN 2.9 g/dL (3.5-5.0); ALKALINE PHOSPHATASE 160 U/L (38-126); ANION GAP 5 (5-19); ASPARTATE AMINO TRANSFERASE 96 U/L (14-36); BILIRUBIN,DIRECT 1.2 mg/dL (0.0-0.4); BILIRUBIN,TOTAL 4.4 mg/dL (0.2-1.3); BLOOD UREA NITROGEN 18 mg/dL (7-20); CALCIUM 8.9 mg/dL (8.4-10.2); CARBON DIOXIDE 22 mmol/L (22-30); CHLORIDE 107 mmol/L (98-107); GLUCOSE 114 mg/dL (75-110); POTASSIUM 4.1 mmol/L (3.6-5.0); SODIUM 133.7 mmol/L (137-145); TOTAL PROTEIN 6.8 g/dL (6.3-8.2)
[2018-11-16 03:09] LABS: INTERNATIONAL RATION (INR) 1.38; PROTHROMBIN TIME 17.7 SEC (11.4-15.4)
[2018-11-16 03:13] LABS: PLATELET COUNT 46 10^3/uL (150-450)
[2018-11-16 03:16] LABS: ABSOLUTE LYMPHOCYTES# (MANUAL) 0.5 10^3/uL (0.5-4.7); ABSOLUTE MONOCYTES # (MANUAL) 1.2 10^3/uL (0.1-1.4); ABSOLUTE NEUTROPHILS# (MANUAL) 8.1 10^3/uL (1.7-8.2); BAND NEUTROPHILS % (MANUAL) 2 % (3-5); BASOPHILS % (MANUAL) 0 % (0-2); EOSINOPHILS % (MANUAL) 0 % (0-6); LYMPHOCYTES % (MANUAL) 4 % (13-45); MONOCYTES % (MANUAL) 12 % (3-13); SEGMENTED NEUTROPHILS % (MAN) 81 % (42-78); TOTAL CELLS COUNTED 100
[2018-11-16 03:26] LABS: ANISOCYTOSIS SLIGHT; PLATELET COMMENT DECREASED; POIKILOCYTOSIS SLIGHT; TEAR DROP CELLS SLIGHT; TOXIC GRANULATION 1+; TOXIC VACUOLATION PRESENT
--- NOTE | 2018-11-16 03:26 | RADIOLOGY REPORT (SQ) ---
EXAM DESCRIPTION: XR CHEST 1 VIEW COMPLETED DATE/TME: 11/16/2018 01:51 CLINICAL HISTORY: 68 years, Female, cough with fever COMPARISON: 09/01/2015 chest NUMBER OF VIEWS: 1 TECHNIQUE: Portable chest LIMITATIONS: None. FINDINGS: Heart size is stable. Osteopenia. Lungs are clear. No pneumothorax IMPRESSION: No acute cardiopulmonary process copyright 2010 [employer]- All Rights Reserved
[2018-11-16 05:16] LABS: A TYPE INFLUENZA AG NEGATIVE (NEGATIVE); B INFLUENZA AG NEGATIVE (NEGATIVE)
--- NOTE | 2018-11-16 05:59 | ER Document Report ---
ED General - General Chief Complaint: Breathing Difficulty Stated Complaint: TROUBLE BREATHING,FEVER,COUGH Time Seen by Provider: 11/16/18 01:46 Mode of Arrival: Wheelchair Information source: Patient Notes: Patient is a 68-year-old female who presents to the emergency department with multiple complaints. Patient reports fever, cough, nausea, diarrhea, right flank pain and dark urine. Patient reports all symptoms started several days ago other than the cough which started several months ago. Patient's daughter reports that the patient's urine is very dark in color. Patient denies any dysuria. Patient does have a history of hepatitis C, states that she has been taking medications for this and that at this point it is undetectable. Patient denies history of CHF or chronic kidney disease. TRAVEL OUTSIDE OF THE [place] IN LAST 30 DAYS: No - Related Data Allergies/Adverse Reactions: No Known Allergies Allergy (Verified 03/01/18 15:28) Past Medical History - General Information source: Patient, Relative - Daughter - Social History Smoking Status: Never Smoker Chew tobacco use (# tins/day): No Frequency of alcohol use: None Drug Abuse: None Family History: Reviewed & Not Pertinent Patient has suicidal ideation: No Patient has homicidal ideation: No - Past Medical History Cardiac Medical History: Reports: Hx Hypertension Renal/ Medical History: Denies: Hx Peritoneal Dialysis GI Medical History: Reports: Hx Hepatitis - Possible hep C Infectious Medical History: Reports: Hx Hepatitis - Possible hep C - Immunizations Hx Diphtheria, Pertussis, Tetanus Vaccination: Yes Review of Systems - Review of Systems Constitutional: See HPI EENT: No symptoms reported Cardiovascular: See HPI Respiratory: See HPI Gastrointestinal: See HPI Genitourinary: See HPI Female Genitourinary: No symptoms reported Musculoskeletal: No symptoms reported Skin: No symptoms reported Hematologic/Lymphatic: No symptoms reported Neurological/Psychological: No symptoms reported Physical Exam - Vital signs Vitals: Temp Pulse Resp BP Pulse Ox 99.8 F 94 18 122/36 L 96 11/15/18 23:41 11/15/18 23:41 11/15/18 23:41 11/15/18 23:41 11/15/18 23:41 - Notes Notes: PHYSICAL EXAMINATION: GENERAL: Well-appearing, well-nourished and in no acute distress. HEAD: Atraumatic, normocephalic. EYES: Pupils equal round and reactive to light, extraocular movements intact, conjunctiva are normal. ENT: Nares patent, oropharynx clear without exudates. Moist mucous membranes. NECK: Normal range of motion, supple without lymphadenopathy LUNGS: Lung sounds with coarse wheezes noted bilaterally. HEART: Regular rate and rhythm without murmurs ABDOMEN: Soft, nontender, nondistended abdomen. No guarding, no rebound. No masses appreciated. Female : No CVA tenderness. Musculoskeletal: Normal range of motion, no pitting or edema. No cyanosis. NEUROLOGICAL: Cranial nerves grossly intact. Normal speech, normal gait. Normal sensory, motor exams PSYCH: Normal mood, normal affect. SKIN: Warm, Dry, normal turgor, no rashes or lesions noted. Course - Re-evaluation Re-evalutation: Patient has improved dramatically after administration of breathing treatments and IV fluids. Patient's chest x-ray is negative for any acute findings. Patient does have elevated liver enzymes, she does have a history of hepatitis. Patient was offered an ultrasound of her liver. Patient declined this stating that she has already seen a liver specialist and saw him last week. I did explain to the patient that things can change from 1 week ago until now and that my attending physician feels it would be a good idea to perform this test. Patient and declined this ultrasound. She was given a second liter of fluids due to her elevated CK. She has had persistent diarrhea over the last 2 days. Encourage patient to purchase [id number] Imodium if her diarrhea persists. She states that she is going back to her home town in the next 2-3 days and that she will follow-up with her primary care provider. I did give patient strict ED return precautions and encouraged to return to our emergency department for any new or worsening symptoms. Patient's vital signs have been stable during her emergency department visit and her vitals are stable at discharge. - Vital Signs Vital signs: Temp Pulse Resp BP Pulse Ox 99 F 91 16 118/31 L 98 11/16/18 04:02 11/16/18 06:39 11/16/18 06:39 11/16/18 06:39 11/16/18 06:39 - Laboratory Result Diagrams: 11/16/18 02:10 11/16/18 02:10 Laboratory results interpreted by me: 11/16/18 11/16/18 11/16/18 02:10 02:10 02:10 MCV 100 H MCH 34.5 H RDW 14.9 H Plt Count 46 L Seg Neuts % (Manual) 81 H Band Neutrophils % 2 L Lymphocytes % (Manual) 4 L PT 17.7 H Sodium 133.7 L Glucose 114 H Total Bilirubin 4.4 H Direct Bilirubin 1.2 H AST 96 H Alkaline Phosphatase 160 H Creatine Kinase Albumin 2.9 L Urine Protein Urine Bilirubin Urine Urobilinogen 11/16/18 11/16/18 02:10 02:10 MCV MCH RDW Plt Count Seg Neuts % (Manual) Band Neutrophils % Lymphocytes % (Manual) PT Sodium Glucose Total Bilirubin Direct Bilirubin AST Alkaline Phosphatase Creatine Kinase 747 H Albumin Urine Protein 30 H Urine Bilirubin SMALL H Urine Urobilinogen 4.0 H Discharge - Discharge Clinical Impression: Elevated CK, Hyperbilirubinemia, Cough, Nausea vomiting and diarrhea Condition: Stable Disposition: HOME, SELF-CARE Additional Instructions: Please take medications as prescribed. Recommend taking [id number] dec ongestant for your congestion as this may also help with the pressure in your ear. Please follow-up with your primary care provider as soon as you get home, call them now to schedule appointment. Return to the emergency department with any new or worsening symptoms. We are happy to reevaluate you at any time. Prescriptions: Ondansetron [Zofran Odt 4 mg Tablet] 1 - 2 tab PO Q4H PRN #15 tab.rapdis PRN Reason: For Nausea/Vomiting Prednisone [Deltasone 20 mg Tablet] 60 mg PO DAILY 5 Days #15 tablet
[2018-11-16 06:40] VITALS: BP 118/31
--- NOTE | 2018-11-16 10:13 | EKG REPORT ---
SEVERITY:- OTHERWISE NORMAL ECG - SINUS RHYTHM ATRIAL PREMATURE COMPLEX BORDERLINE LEFT AXIS DEVIATION : Confirmed by: Renetta Roland MD 16-Nov-2018 10:13:22
== END 2018-11-16 06:41 | disposition home or self-care (01) ==
LOC: ER 23:34
DX: R74.8 Abnormal levels of other serum enzymes (principal); E80.6 Other disorders of bilirubin metabolism; R05 Cough; R11.2 Nausea with vomiting, unspecified; R19.7 Diarrhea, unspecified; R06.02 Shortness of breath; R50.9 Fever, unspecified; R11.0 Nausea; R10.9 Unspecified abdominal pain; R39.198 Other difficulties with micturition; I10 Essential (primary) hypertension
CPT/HCPCS: 93005; 94640 ×2; 99285; 96361; 96374; 36415; 87040; 87086; 82550; 85025; 85610; 80053; 81001; 84484; 83605; 87804; 71045; 93010; J2405; J7030; A9270; J7620